=== PATIENT | male | born 1960 | race Caucasian/White ===

== ENCOUNTER 2021-07-26 09:47 | Emergency (ER) | payer OTHER ==
[2021-07-26] MEDS: Acetaminophen 500 MG Tab PO ONE (10:51)
== END 2021-07-26 11:00 | disposition home or self-care (01) ==
LOC: VM.ED 09:47
DX: S06.0X0A Concussion without loss of consciousness, initial encounter (principal); I10 Essential (primary) hypertension; Z79.82 Long term (current) use of aspirin; Z79.899 Other long term (current) drug therapy; W01.198A Fall on same level from slipping, tripping and stumbling with subsequent striking against other object, initial encounter
CPT/HCPCS: 70450; 99283-25; 99284; A9270-GY